=== PATIENT | female | born 1995 | race Hispanic/Latino ===

== ENCOUNTER 2019-09-07 16:04 | Outpatient (CLI) | payer OTHER ==
--- NOTE | 2019-09-07 17:08 | ULT ---
Pelvic ultrasound: 09/07/2019 COMPARISON: None HISTORY: female, evaluate size and dates TECHNIQUE: Multiplanar grayscale sonographic imaging of the pelvis obtained. Ovaries are assessed wit h color flow/spectral analysis FINDINGS: The uterus measures 8.5 x 8.0 x 6.3 cm. Right ovary measures 3.3 x 2.8 x 2.0 cm and left ov raj measures 3.1 x 2.4 x 1.6 cm. Ovaries demonstrate normal blood flow without evidence for mass. There is an oval hypoechoic structure within the uterus associated with the endometrial stripe measur ing 2.1 x 1.5 cm. It does not contain a pole or a yolk sac. This could represent an empty gestational sac or could represent a pseudogestational sac in the setting of sonographically occult e ctopic . No free fluid is seen in the pelvis. IMPRESSION: Oval hypoechoic structure as above, which could represent an empty gestational sac on the basis of early normal or spontaneous . However, this could represent a pseudogestational sac on the basis of ectopic . Correlation with quantitative beta-hCG at th is time and in 48 hours is advised. In addition, follow-up pelvic ultrasound in 48 hours is suggested.
== END 2019-09-07 16:05 | disposition home or self-care (01) ==
LOC: NAV ULT 16:04
PROVIDERS: ATTEND Family Medicine
DX: O09.91 Supervision of high risk pregnancy, unspecified, first trimester (principal); N85.8 Other specified noninflammatory disorders of uterus
CPT/HCPCS: 76805